=== PATIENT | female | born 1955 | race Caucasian/White ===

== ENCOUNTER → 2016-11-24 | Outpatient (CLI) | payer OTHER ==
[~2016-11-24] MED LIST: AMLO5TAB2 PO; ASPI-621 PO; ATOR40TA78 PO; ATOR80TA75 PO; EZET10TA3 PO; HYDR-3138 PO; HYDR12.58 PO; IRBE1TAB37 PO; LANS15CA5 PO; LANS30CA PO; LISI-167 PO; LISI5TAB7 PO; METO25TA35 PO; NITR0.4T8 SL; OMEP-110 PO; TICA90TA PO
== END | disposition home or self-care (01) ==
LOC: CARD 15:31
PROVIDERS: ATTEND Internal Medicine Cardiovascular Disease
DX: R09.02 Hypoxemia (principal)
CPT/HCPCS: 94060; 94726; 94729

== ENCOUNTER 2019-05-24 11:18 | Day surgery (SDC) | payer MEDICARE, OTHER ==
[~2019-05-24] VITALS: Ht 157.5 cm; Wt 78.5 kg
[~2019-05-24 11:18] MED LIST changes: +AMLO-150 PO; -AMLO5TAB2 PO; -ASPI-621 PO; +ASPI81TA45 PO; +ASPI81TA50 PO; +ATOR-2 PO; -ATOR80TA75 PO; -EZET10TA3 PO; +EZET10TA70 PO; +FENTANYL PF 100 MCG/2ML ONE; -HYDR-3138 PO; +HYDR-3237 PO; -HYDR12.58 PO; +HYDROCHLOROTH12.5 MG PO; +MIDAZOLAM 1 MG/ML, 2ML ONE; +NITR0.4T28 SL; -NITR0.4T8 SL
[2019-05-24] MEDS ORDERED: LACTATED RINGERS 1,000 ML IV SCH (11:27)
[2019-05-24] MEDS ORDERED: GABAPENTIN 300 MG CAPSULE PO ONE (11:30)
[2019-05-24] MEDS ORDERED: ACETAMINOPHEN 500 MG TABLET PO ONE (11:30)
[2019-05-24 11:37] VITALS: BP 129/81
[2019-05-24] MEDS ORDERED: FENTANYL PF 100 MCG/2ML ONE (12:07)
[2019-05-24] MEDS ORDERED: MIDAZOLAM 1 MG/ML, 2ML ONE (12:07)
[2019-05-24] MEDS ORDERED: ONDANSETRON 2MG/ML, 2ML ONE (12:57)
[2019-05-24] MEDS ORDERED: PROPOFOL 10 MG/ML, 20ML ONE (12:57)
[2019-05-24] MEDS ORDERED: CEFAZOLIN 1,000 MG ONE (12:57)
[2019-05-24] MEDS ORDERED: DEXAMETHASONE 4 MG/ML, 1ML ONE (12:57)
[2019-05-24] MEDS ORDERED: ONDANSETRON 2MG/ML, 2ML IV PRN (13:30)
[2019-05-24] MEDS ORDERED: LABETALOL 5 MG/ML SYR. (IV ONLY) IV PRN (13:30)
[2019-05-24] MEDS ORDERED: PROMETHAZINE 25 MG/ML, 1ML IV PRN (13:30)
[2019-05-24] MEDS ORDERED: HYDROmorphone 2 MG/ML, 1ML IVPush PRN (13:30)
[2019-05-24] MEDS ORDERED: METOPROLOL 1 MG/ML, 5ML IV PRN (13:30)
[2019-05-24] MEDS ORDERED: LORazepam 2 MG/ML, 1ML IVPush PRN (13:30)
[2019-05-24] MEDS ORDERED: OXYcodone 5 MG/5 ML ORAL.SOL UDC PO PRN (13:30)
[2019-05-24] MEDS ORDERED: hydrALAzine 20 MG/ML, 1ML IV PRN (13:30)
[2019-05-24] MEDS ORDERED: PROMETHAZINE 25 MG SUPP PR PRN (13:30)
[2019-05-24] MEDS ORDERED: ONDANSETRON ODT 8 MG PO PRN (13:30)
[2019-05-24] MEDS ORDERED: FENTANYL PF 100 MCG/2ML IV PRN (13:30)
[2019-05-24] MEDS ORDERED: MEPERIDINE/PF 25MG/ML,1ML IVPush PRN (13:30)
== END 2019-05-24 16:20 | disposition home or self-care (01) ==
LOC: OUT 11:18
PROVIDERS: ATTEND Orthopaedic Surgery
DX: S93.125A Dislocation of metatarsophalangeal joint of left lesser toe(s), initial encounter (principal); M77.42 Metatarsalgia, left foot; M24.575 Contracture, left foot; M21.172 Varus deformity, not elsewhere classified, left ankle; I10 Essential (primary) hypertension; I25.2 Old myocardial infarction; G47.33 Obstructive sleep apnea (adult) (pediatric); Z79.82 Long term (current) use of aspirin; Z79.899 Other long term (current) drug therapy; Z87.891 Personal history of nicotine dependence; Z95.5 Presence of coronary angioplasty implant and graft; Z98.890 Other specified postprocedural states; X58.XXXA Exposure to other specified factors, initial encounter; Y93.89 Activity, other specified; Y92.89 Other specified places as the place of occurrence of the external cause; Y99.8 Other external cause status
CPT/HCPCS: 28010; 28270; 28308; 28645; 64445; 64447; C1713; J0690; J1100; J2250; J2405; J2704; J3010; J7120; 93005

== ENCOUNTER → 2020-10-15 | Outpatient (CLI) | payer MEDICARE, OTHER ==
[~2020-10-15] MED LIST changes: -FENTANYL PF 100 MCG/2ML ONE; -MIDAZOLAM 1 MG/ML, 2ML ONE; +REGADENOSON 0.4 MG/5 ML SYRINGE ONE
== END | disposition home or self-care (01) ==
LOC: CFH 07:55
PROVIDERS: ATTEND Internal Medicine Cardiovascular Disease
DX: I34.0 Nonrheumatic mitral (valve) insufficiency (principal); Z98.61 Coronary angioplasty status
CPT/HCPCS: 78452; 93017; A9502; J2785